=== PATIENT | female | born 1980 | race Caucasian/White ===

== ENCOUNTER 2018-11-10 23:49 | Emergency (ER) | payer MEDICAID ==
[~2018-11-10] VITALS: Ht 182.9 cm; Wt 179.0 kg
[2018-11-10 23:55] VITALS: BP 155/77
[2018-11-11] MEDS ORDERED: PENI500T2 PO (01:30)
[2018-11-11] MEDS ORDERED: HYDROcodone/acetaminophen 10/325mg tab PO ONE (01:30)
[2018-11-11] MEDS ORDERED: HYDR-4353 PO (01:30)
[2018-11-11] MEDS ORDERED: penicillin V potassium 500mg tablet PO ONE (01:30)
[2018-11-11] MEDS ORDERED: fluconazole 150mg tablet PO ONE (01:35)
== END 2018-11-11 01:48 | disposition home or self-care (01) ==
LOC: ER 23:50
DX: R51 Headache (principal); R22.0 Localized swelling, mass and lump, head; R68.84 Jaw pain; J45.909 Unspecified asthma, uncomplicated; Z88.1 Allergy status to other antibiotic agents; Z91.040 Latex allergy status
CPT/HCPCS: 99284

== ENCOUNTER 2019-08-20 03:48 | Emergency (ER) | payer BC, MEDICAID ==
[~2019-08-20] VITALS: Ht 182.9 cm; Wt 181.3 kg
[2019-08-20] MEDS ORDERED: mag hydrox/Alum hydrox/simeth 30ml oral suspension PO ONE (04:10)
[2019-08-20] MEDS ORDERED: famotidine 20mg tablet PO ONE (04:10)
[2019-08-20] MEDS ORDERED: LIDOcaine Viscous 15ml cup MM ONE (04:10)
[2019-08-20] MEDS ORDERED: ondansetron 4mg rapidly disintigrating tab PO ONE (04:10)
[2019-08-20 04:30] LABS: CLARITY,URINE SLIGHTLY CLOUDY (Clear); COLOR,URINE YELLOW (Yellow); GLUCOSE, URINE NEGATIVE (Neg); KETONES,URINE NEGATIVE (Neg); LEUKOCYTE ESTERASE ,URINE TRACE (Neg); NITRITES, URINE NEGATIVE (Neg); OCCULT BLOOD,URINE TRACE-INTACT (Neg); PROTEIN,URINE NEGATIVE (Neg); URINE HCG NEGATIVE (NEG)
[2019-08-20] MEDS ORDERED: HYDROcodone/acetaminophen 5mg/325mg tablet PO ONE (04:35)
[2019-08-20 04:36] LABS: BASOPHILS # (AUTO) 0.1 X10'3 (0-0.2); BASOPHILS % (AUTO) 0.5 % (0-1); EOSINOPHILS # (AUTO) 0.3 X10'3 (0-0.9); EOSINOPHILS % (AUTO) 1.8 % (0-6); HEMATOCRIT 39.7 % (35.0-45.0); HEMOGLOBIN 13.1 g/dl (12.0-16.0); LYMPHOCYTES # (AUTO) 1.8 X10'3 (1.1-4.8); LYMPHOCYTES % (AUTO) 12.9 % (21-51); MEAN CORPUSCULAR HEMOGLOBIN 27.2 PG (27.0-31.0); MEAN CORPUSCULAR VOLUME 82.3 FL (78-98); MEAN PLATELET VOLUME 8.6 FL (7.4-10.4); MONOCYTES # (AUTO) 0.8 X10'3 (0-0.9); MONOCYTES % (AUTO) 5.5 % (2-12); NEUTROPHILS % (AUTO) 79.3 % (42-75); PLATELET COUNT 421 X10'3 (140-440); RED BLOOD COUNT 4.82 X10'6 (4.20-5.60); RED CELL DISTRIBUTION WIDTH 14.8 % (11.5-14.5); WHITE BLOOD COUNT 13.9 X10'3 (4.5-11.0)
[2019-08-20 04:44] LABS: BACTERIA,URINE FEW /HPF (Neg); RBC,URINE 0-2 /HPF (0-2); SQUAMOUS EPITHELIAL CELL,UR MODERATE /LPF (FEW); UA COLLECTION TYPE CLN CATCH MIDSTREAM
[2019-08-20 04:46] LABS: ALANINE AMINOTRANSFERASE 24 U/L (12-78); ALBUMIN 3.3 G/DL (3.4-5.0); ALBUMIN/GLOBULIN RATIO 0.8 (1.1-1.5); ALKALINE PHOSPHATASE 96 IU/L (46-116); ANION GAP 8 (8-16); ASPARTATE AMINO TRANSFERASE 15 U/L (10-37); BILIRUBIN,TOTAL 0.4 MG/DL (0.1-1.0); BLOOD UREA NITROGEN 13 MG/DL (7-18); BUN/CREATININE RATIO 11.2 (6.6-38.0); CALCIUM 8.7 MG/DL (8.5-10.1); CHLORIDE 105 MMOL/L (99-107); CREATININE 1.16 MG/DL (0.40-0.90); GLUCOSE 146 MG/DL (70-104); POTASSIUM 3.9 MMOL/L (3.5-5.1); SODIUM 139 MMOL/L (135-145); TOTAL CARBON DIOXIDE 25.7 MMOL/L (24-32); TOTAL PROTEIN 7.5 G/DL (6.4-8.2); eGFR 52 ML/MIN
[2019-08-20 04:50] LABS: LIPASE 104 U/L (73-393); TROPONIN I < 0.04 NG/ML (0.0-0.05)
[2019-08-20] MEDS ORDERED: morphine 4 MG/ML inj SYRINge IM ONE (05:30)
[2019-08-20] MEDS ORDERED: HYDR-4353 PO (07:13)
[2019-08-20] MEDS ORDERED: ONDA4TAB6 PO (07:13)
[2019-08-20] MEDS ORDERED: ondansetron/PF 4mg/2ml inj IV ONE (07:15)
[2019-08-20] MEDS ORDERED: fentaNYL/PF 50MCG/1 ML 2ML syringe IV ONE (07:15)
[2019-08-20 07:42] VITALS: BP 142/73
== END 2019-08-20 07:44 | disposition home or self-care (01) ==
LOC: ER 03:48
DX: K80.20 Calculus of gallbladder without cholecystitis without obstruction (principal); J45.909 Unspecified asthma, uncomplicated; K21.9 Gastro-esophageal reflux disease without esophagitis; Z91.040 Latex allergy status; Z88.1 Allergy status to other antibiotic agents; Z79.899 Other long term (current) drug therapy
CPT/HCPCS: 36415; 74176; 76700; 80053; 81001; 81025; 83690; 84484; 85025; 87088; 93005; 96372; 96374; 96375; 99284; J2270; J2405; J3010

== ENCOUNTER 2019-10-11 07:48 | Observation (INO) | payer BC ==
[2019-10-10 10:03] LABS: BASOPHILS # (AUTO) 0.1 X10'3 (0-0.2); BASOPHILS % (AUTO) 0.9 % (0-1); EOSINOPHILS # (AUTO) 0.1 X10'3 (0-0.9); EOSINOPHILS % (AUTO) 1.2 % (0-6); LYMPHOCYTES # (AUTO) 1.6 X10'3 (1.1-4.8); LYMPHOCYTES % (AUTO) 15.8 % (21-51); MEAN CORPUSCULAR HEMOGLOBIN 27.3 PG (27.0-31.0); MEAN CORPUSCULAR HGB CONC 33.4 g/dL (33.0-36.5); MEAN CORPUSCULAR VOLUME 81.5 FL (78-98); MEAN PLATELET VOLUME 8.8 FL (7.4-10.4); MONOCYTES # (AUTO) 0.4 X10'3 (0-0.9); MONOCYTES % (AUTO) 4.1 % (2-12); NEUTROPHILS # (AUTO) 7.7 X10'3 (1.8-7.7); PRE OP HEMOGLOBIN 13.7 g/dL (12.0-16.0); PRE OP PLATELET COUNT 382 X10'3 (140-440); RED BLOOD COUNT 5.03 X10'6 (4.20-5.60); RED CELL DISTRIBUTION WIDTH 15.2 % (11.5-14.5)
[2019-10-10 10:27] LABS: ALBUMIN/GLOBULIN RATIO 0.7 (1.1-1.5); ALKALINE PHOSPHATASE 75 IU/L (46-116); BLOOD UREA NITROGEN 10 MG/DL (7-18); BUN/CREATININE RATIO 9.7 (6.6-38.0); CHLORIDE 106 MMOL/L (99-107); CREATININE 1.03 MG/DL (0.40-0.90); PRE OP ALT 21 U/L (30-65); PRE OP ANION GAP 8 (8-16); PRE OP AST 10 U/L (10-37); PRE OP BILIRUB, TOTAL 0.2 MG/DL (0.0-1.0); PRE OP GLUCOSE 93 MG/DL (70-104); PRE OP POTASSIUM 3.9 MMOL/L (3.4-5.1); PRE OP SODIUM 140 MMOL/L (135-145); TOTAL CARBON DIOXIDE 26.3 MMOL/L (24-32); TOTAL PROTEIN 7.4 G/DL (6.4-8.2); eGFR 59 ML/MIN
[2019-10-10 10:31] LABS: HCG SERUM QL NEGATIVE
[2019-10-11] VITALS (17 sets, daily range): BP systolic 112–146; BP diastolic 60–88
[~2019-10-11] VITALS: Ht 182.9 cm; Wt 179.4 kg
[~2019-10-11 07:48] MED LIST: BUDE10.2 INH; BUPIVAcaine/PF 2.5 mg/ml (0.25%) 30ml vial ONE; BUPR-114 PO; CHOL200016 PO; CLIN60SO2 TP; INDOCYANINE GREEN 25 MG VIAL IV ONE; LIDOcaine 1% 30ml preserv. free vial ONE; MET0.75G TP; MONT10TA24 PO; NORG1TAB78 PO; OMEP40CA13 PO; ceFAZolin 1,000 MG/D5W 50ML IVPB Premixed bag IV ONE; cefazolin/dext.iso 2gm/100ml 100 ML IV ONE; famotidine 10mg tablet PO ONE; ringers solution, lacted 1,000 ML IV SCH
[2019-10-11] MEDS ORDERED: ondansetron/PF 4mg/2ml inj IV ONE (09:50)
[2019-10-11] MEDS ORDERED: albuterol 2.5 MG/3 ML nebule NEB ONE (09:50)
[2019-10-11] MEDS: ringers solution, lacted 1,000 ML IV SCH ×2 (09:53→17:56)
[2019-10-11] MEDS ORDERED: proCHLORperazine 10 MG/2 ml inj IV PRN (09:55)
[2019-10-11] MEDS ORDERED: morphine 4 MG/ML inj SYRINge IV PRN ×2 (09:55)
[2019-10-11] MEDS ORDERED: meperidine/PF 25mg/ml syringe IV PRN ×2 (09:55)
[2019-10-11] MEDS ORDERED: ondansetron/PF 4mg/2ml inj IV PRN ×2 (09:55→12:40)
[2019-10-11] MEDS ORDERED: midazolam 2 mg/2 ml injection ONE (10:13)
[2019-10-11] MEDS ORDERED: fentaNYL /PF 50mcg/ml 5ml ampule ONE (10:13)
[2019-10-11] MEDS ORDERED: succinylcholine 20mg/ml inj IV ONE (10:14)
[2019-10-11] MEDS ORDERED: glycopyrrolate 0.2mg/ml inj ONE (10:14)
[2019-10-11] MEDS ORDERED: propofol inj 20 ML IV ONE (10:14)
[2019-10-11] MEDS ORDERED: neostigmine methylsulfate 1 MG/ML 10ml vial ONE (10:14)
[2019-10-11] MEDS ORDERED: dexamethasone sod phosphate 4mg/ml inj. ONE (10:14)
[2019-10-11] MEDS ORDERED: LIDOcaine 2% (20mg/ml) 5ml vial ONE (10:14)
[2019-10-11] MEDS ORDERED: ondansetron/PF 4mg/2ml inj ONE (10:14)
[2019-10-11] MEDS ORDERED: rocuronium 10mg/ml inj IV ONE (10:14)
[2019-10-11] MEDS ORDERED: sevoflurane 250ml liquid IH ONE (11:01)
--- NOTE | 2019-10-11 12:34 | NUR ---
Received from OR via , accompanied by Anesthesiologist HUBERT and report given by Anesthesiolgist. AWAKE VS WNL, NO CO PAIN, DSG DI ABD, SKIN WARM AND DRY, HOB ELEVATED.
[2019-10-11] MEDS ORDERED: HYDROcodone/acetaminophen 10/325mg tab PO PRN (12:40)
[2019-10-11] MEDS ORDERED: HYDROmorphone inj. 0.5 MG/0.5 ML DISP.SYRIN IV PRN (12:40)
[2019-10-11] MEDS: meperidine/PF 25mg/ml syringe IV PRN (13:04)
--- NOTE | 2019-10-11 13:21 | NUR ---
I have received report from Shakira CAMARGO from recovery room and had the opportunity to ask questions and assume patient care.
--- NOTE | 2019-10-11 13:34 | NUR ---
Report called to receiving nurse. Transferred via [facility] . Special Issues communicated to receiving nurse.AWAKE VS WNL, DSG DI, SCDS ON PAIN DECREASED AFTER PAIN MEDS. WANTS TO GO HOME LATER, DR REDDY AWARE, WILL CHECK ON HER LATER. NEEDS SUPPLEMENETAL O2 TO KEEP SPO2 GREATER THAN 93%. tO ROOM AT 1344
[2019-10-11] MEDS: albuterol 2.5 MG/3 ML nebule NEB SCH ×2 (15:00→19:46)
[2019-10-11] MEDS: HYDROmorphone 1 mg/ml syringe IV PRN ×2 (15:10→21:13)
--- NOTE | 2019-10-11 18:32 | NUR ---
Patient in room [facility]. I have received report from Katt CAMARGO and had the opportunity to ask questions and assume patient care.
--- NOTE | 2019-10-11 19:09 | NUR ---
Pt alert and oriented. got to bathroom to void without complication. tolerated clear liquid well. Problems reprioritized. Patient report given, questions answered & plan of care reviewed with Joanne CAMARGO. Addendum: 10/11/19 at 1918 by Giovanna Elliott RN Pt alert and oriented. got up to bathroom to void without complication. Tolerated clear liquid well. Report given to Lorenza CAMARGO.
[2019-10-11] MEDS: budesonide 0.5mg/2ml UD nebule IH SCH (19:46)
[2019-10-11] MEDS: CLINDAMYCIN PHOSPHATE TP SCH (20:00)
[2019-10-11] MEDS ORDERED: buPROPion SR 150mg tablet PO SCH (21:00)
[2019-10-11] MEDS ORDERED: ESTARYLLA PO SCH (21:00)
[2019-10-11] MEDS: vitamin D (cholecalciferol) 1,000 unit tablet PO SCH (21:16)
[2019-10-12] VITALS: BP 112/50
[2019-10-12] MEDS: meperidine/PF 25mg/ml syringe IV PRN (00:58)
[2019-10-12 04:00] VITALS: BP 98/62
[2019-10-12 06:43] LABS: BASOPHILS % (AUTO) 0.3 % (0-1); EOSINOPHILS % (AUTO) 0.1 % (0-6); HEMATOCRIT 36.1 % (35.0-45.0); HEMOGLOBIN 12.1 g/dl (12.0-16.0); LYMPHOCYTES % (AUTO) 12.7 % (21-51); MEAN CORPUSCULAR HGB CONC 33.4 g/dL (33.0-36.5); MEAN CORPUSCULAR VOLUME 80.9 FL (78-98); MEAN PLATELET VOLUME 8.9 FL (7.4-10.4); MONOCYTES # (AUTO) 0.8 X10'3 (0-0.9); MONOCYTES % (AUTO) 4.7 % (2-12); NEUTROPHILS # (AUTO) 13.1 X10'3 (1.8-7.7); NEUTROPHILS % (AUTO) 82.2 % (42-75); PLATELET COUNT 363 X10'3 (140-440); RED BLOOD COUNT 4.46 X10'6 (4.20-5.60); RED CELL DISTRIBUTION WIDTH 15.2 % (11.5-14.5)
--- NOTE | 2019-10-12 06:46 | NUR ---
Patient in room [facility]. I have received report from Lorenza and had the opportunity to ask questions and assume patient care.
--- NOTE | 2019-10-12 06:49 | NUR ---
Problems reprioritized. Patient report given, questions answered & plan of care reviewed with Katt CAMARGO.
[2019-10-12 06:56] LABS: ALANINE AMINOTRANSFERASE 31 U/L (12-78); ALBUMIN 2.6 G/DL (3.4-5.0); ALBUMIN/GLOBULIN RATIO 0.7 (1.1-1.5); ALKALINE PHOSPHATASE 63 IU/L (46-116); ANION GAP 9 (8-16); ASPARTATE AMINO TRANSFERASE 19 U/L (10-37); BILIRUBIN,TOTAL 0.2 MG/DL (0.1-1.0); BLOOD UREA NITROGEN 10 MG/DL (7-18); BUN/CREATININE RATIO 10.2 (6.6-38.0); CALCIUM 8.6 MG/DL (8.5-10.1); CHLORIDE 106 MMOL/L (99-107); CREATININE 0.98 MG/DL (0.40-0.90); GLUCOSE 123 MG/DL (70-104); POTASSIUM 4.1 MMOL/L (3.5-5.1); SODIUM 142 MMOL/L (135-145); TOTAL CARBON DIOXIDE 26.6 MMOL/L (24-32); TOTAL PROTEIN 6.5 G/DL (6.4-8.2); eGFR 63 ML/MIN
[2019-10-12] MEDS: albuterol 2.5 MG/3 ML nebule NEB SCH ×2 (07:05→11:00)
[2019-10-12] MEDS: budesonide 0.5mg/2ml UD nebule IH SCH (07:05)
[2019-10-12 08:00] VITALS: BP 123/61
[2019-10-12] MEDS ORDERED: pantoprazole 40mg Tablet.DR PO SCH (08:00)
[2019-10-12] MEDS ORDERED: montelukast 10mg tablet PO SCH (08:00)
[2019-10-12] MEDS ORDERED: buPROPion SR 150mg tablet PO SCH (08:00)
[2019-10-12] MEDS: CLINDAMYCIN PHOSPHATE TP SCH (08:00)
[2019-10-12] MEDS: vitamin D (cholecalciferol) 1,000 unit tablet PO SCH (08:14)
--- NOTE | 2019-10-12 11:54 | NUR ---
Patient D/C'd home per Dr Hwang orders. Pt on stable condition, peristalsis present, tolerating diet and po meds well. IV removed intact. Discharge and medication instructions given to pt. pt was escorted on wheel chair to main lobby; left this hospital accompanied by via private vehicle.
== END 2019-10-12 11:41 | disposition home or self-care (01) ==
LOC: PAS 07:48 → SUR 3N 12:44
PROVIDERS: ADMIT Surgery; ATTEND Surgery
DX: K80.20 Calculus of gallbladder without cholecystitis without obstruction (principal); R11.2 Nausea with vomiting, unspecified; E66.01 Morbid (severe) obesity due to excess calories; J45.909 Unspecified asthma, uncomplicated; F32.9 Major depressive disorder, single episode, unspecified; E03.9 Hypothyroidism, unspecified; Z79.899 Other long term (current) drug therapy; Z79.51 Long term (current) use of inhaled steroids; Z91.040 Latex allergy status; Z88.8 Allergy status to other drugs, medicaments and biological substances; Z68.43 Body mass index [BMI] 50.0-59.9, adult
CPT/HCPCS: 36415; 47563; 80053; 82948; 84703; 85025; 87081; 93005; 94640; 94760; 96361; 96374; 96375; 96376; G0378; J0330; J0690; J1100; J1170; J2001; J2175; J2250; J2270; J2405; J2704; J2710; J3010; J3490; J7120; S2900; A4215; A4618; A7000; J7626